=== PATIENT | male | born 1940 | race Caucasian/White ===

== ENCOUNTER 2019-04-06 16:05 | Emergency (ER) | payer MEDICARE ==
[2019-04-06] MEDS ORDERED: Acetaminophen 500 MG TAB ONE (16:57)
--- NOTE | 2019-04-06 17:22 | RAD ---
EXAM: Chest PA and lateral: HISTORY: Cough COMPARISON: None FINDINGS: Heart: Normal cardiac silhouette Aorta: Unremarkable Pulmonary vessels: Normal Costophrenic angles: Costophrenic angles are clear. Lungs: No consolidation or masses. Patchy interstitial opacities are presumed to represent chronic ch yo. A possible developing right lower lobe infiltrate cannot be entirely excluded. Pneumothorax: No pneumothorax Osseous structures: No osseous abnormalities IMPRESSION: Presumed chronic changes. A developing right lower lobe interstitial infiltrate cannot be excluded. Transcribed Date/Time: 04/06/2019 5:27 PM
[2019-04-06] MEDS ORDERED: Lactated Ringer's 1,000 ML ONE (17:41)
[2019-04-06 17:47] LABS: Eosinophils 1 % (0-10); Hemoglobin 13.9 g/dL (14.0-18.0); Lymphocytes 2 % (21-51); MDiff Complete? YES; Mean Corpuscular HGB CONC 31.3 g/dL (32.0-36.0); Mean Corpuscular Hemoglobin 29.8 pg (27.0-31.0); Mean Corpuscular Volume 95.3 fL (78.0-98.0); Mean Platelet Volume 8.2 fL (7.4-10.4); Metamyelocyte 1 % (0-0); Monocytes 10 % (0-10); Myelocyte 1 % (0-0); Neutrophil 79 % (42-75); Platelet Count 249 thou/uL (130-400); Platelet Morphology Comment Appears Adequate; RBC Distribution Width 11.4 % (11.5-14.5); RBC Morphology Normal; Reactive Lymphocytes 6 % (0-10); Red Blood Cell (RBC) Count 4.66 mill/uL (4.70-6.10); White Blood Cell (WBC) Count 21.2 thou/uL (4.8-10.8)
[2019-04-06 17:48] LABS: ALT (SGPT) 14 U/L (8-55); AST (SGOT) 16 U/L (5-34); Albumin 4.3 g/dL (3.4-4.8); Alkaline Phosphatase 71 U/L (40-110); Anion Gap 16 mmol/L (10-20); BUN (Urea Nitrogen) 16 mg/dL (8.4-25.7); Bilirubin, Total 0.5 mg/dL (0.2-1.2); Calc. Creatinine Clearance 0 mL/min (70-130); Calcium 9.7 mg/dL (7.8-10.44); Carbon Dioxide 22 mmol/L (23-31); Chloride 104 mmol/L (98-107); Estimated GFR-MDRD 60; Glucose 112 mg/dL (83-110); Potassium 4.1 mmol/L (3.5-5.1); Protein, Total 8.3 g/dL (5.8-8.1); Sodium 138 mmol/L (136-145)
== END 2019-04-06 18:25 | disposition home or self-care (01) ==
LOC: MADERS 16:05
DX: J15.9 Unspecified bacterial pneumonia (principal)
CPT/HCPCS: 71046; 80053; 83605; 85025; 87804; 96360; J7120